=== PATIENT | male | born 1955 | race Caucasian/White ===

== ENCOUNTER → 2023-09-30 06:21 | Outpatient (REF) | payer MEDICARE, SELFPAY ==
[2023-09-30 08:59] LABS: % Basophils 0.8 % (0-2); % Eosinophils 3.2 % (0-6); % Immature Granulocytes 0.3 % (0-0.5); % Monocytes 13.4 % (1.7-9.3); % Neutrophils 48.3 % (42.2-75.2); Absolute Basophils 0.1 10^3/uL (0-0.2); Absolute Eosinophils 0.3 10^3/uL (0-0.7); Absolute Lymphocytes 3.3 10^3/uL (1.2-3.4); Absolute Monocytes 1.3 10^3/uL (0.1-0.6); Absolute Neutrophils 4.7 10^3/uL (1.4-6.5); Hematocrit 45.2 % (39.0-52.0); Hemoglobin 14.7 g/dL (13.0-18.0); Mean Corp Hgb Conc. 32.5 g/dL (33.0-37.0); Mean Corpuscular Volume 92.2 fL (80.0-94.0); Mean Platelet Volume 11.1 fL (7.4-10.4); Nucleated Red Blood Cells % 0 % (-); Platelet Count 322 10^3/uL (130-400); Red Cell Dist. Width 13.7 % (11.5-14.5); White Blood Cell Count 9.8 10^3/uL (4.8-10.8)
[2023-09-30 09:08] LABS: ALT (SGPT) 40 U/L (0-50); AST (SGOT) 44 U/L (17-59); Albumin 4.6 g/dl (3.5-5.0); Alkaline Phosphatase 67 U/L (38-126); Blood Urea Nitrogen 17 mg/dl (9-20); Calcium 10.1 mg/dl (8.4-10.2); Carbon Dioxide 26 mmol/L (22-30); Chloride 106 mmol/L (98-107); Glucose 115 mg/dl (70-99); HDL Cholesterol 66 mg/dl; LDL Cholesterol, Calculated 125 mg/dl; Potassium 4.8 mmol/L (3.5-5.1); Sodium 139 mmol/L (135-145); Total Bilirubin 0.9 mg/dl (0.2-1.3); Total Cholesterol 208 mg/dl (50-199); Total Protein 7.5 g/dl (6.3-8.2); Triglyceride 85 mg/dl (10-149); Very Low Density Lipoprotein 17 mg/dl (0-30); eGFR > 60.00
[2023-09-30 10:16] LABS: PSA, Total - Screen 0.88 ng/ml (0.0-4.0); TSH Reflex To Free T4 3.25 uIU/ml (0.47-4.68)
== END ==
LOC: HWLAB 06:21
PROVIDERS: ATTENDING PHYSICIAN Internal Medicine
DX: I10 Essential (primary) hypertension (principal); E66.9 Obesity, unspecified; R05.3 Chronic cough; Z12.5 Encounter for screening for malignant neoplasm of prostate; E78.00 Pure hypercholesterolemia, unspecified
CPT/HCPCS: 36415; 80053; 80061; 84443; 85025; G0103

== ENCOUNTER 2024-01-31 15:40 | Emergency (ER) | payer MEDICARE, SELFPAY ==
[2024-01-31 15:43] VITALS: BP 151/87
[2024-01-31] MEDS: ADACEL 0.5 ML IM (17:17)
--- NOTE | 2024-01-31 17:26 | ED.GENMED ---
History of Present Illness
General
Chief Complaint: Skin Surface Trauma
Source: patient and spouse
Exam Limitations: none
Time Seen by Provider: 01/31/24 16:59
Nursing documentation reviewed up to this point in time: agreed with
History of Present Illness
History of Present Illness:
The patient is a 68-year-old male presenting to the emergency department today with concerns of a laceration to his left wrist that happened from a broken place of glass at home. Denies significant bleeding from the area denies any anticoagulant
use. He is unsure when his last tetanus shot was. Denies any numbness weakness or additional concerns.
Past History
Past History
ED Past Medical History: None
ED Past Surgical History: None
Review of Systems
Review of Systems
Allergies reviewed?: Yes
All Other Systems: ROS reviewed and negative except as documented in HPI and ROS
Phy Exam
Physical Exam
Physical Exam:
GENERAL: Alert , in no apparent distress
EYE: pupils equal and reactive
NECK: Supple, no significant adenopathy.
ENT: o/p clr, mmm.
CARDIAC: Regular rate and rhythm .
LUNGS: Clear breath sounds bilaterally, no acute respiratory distress, no wheezes/rales/rhonchi
ABDOMEN: Soft, without focal tenderness, no r/g, no cvat
NEUROLOGICAL: Alert and oriented, no focal neuro deficits
SKIN: 2.5 cm laceration to the anterior aspect of the left wrist. No foreign body seen explored to its base warm and dry, skin intact.
MUSCULOSKELETAL: No edema, well perfused.
PSYCH: Normal and appropriate interaction.
Course
Orders/Labs/Results
Orders:
Orders
01/31/24 17:05
Tetanus/Diphth/Acelpertussis [Adacel] 0.5 ml IM .ONCE ONE
Vital Signs
Initial and Last Documented VS:
Initial Vital Signs
Temp Pulse Resp BP Pulse Ox
99 F 79 16 151/87 95
01/31/24 15:43 01/31/24 15:43 01/31/24 15:43 01/31/24 15:43 01/31/24 15:43
Last Documented Vital Signs
Temp Pulse Resp BP Pulse Ox
99 F 79 16 151/87 95
01/31/24 15:43 01/31/24 15:43 01/31/24 15:43 01/31/24 15:43 01/31/24 15:43
Procedures
Laceration Closure
Left Anterior Wrist:
Status of Wound: clean
Size of Wound in cm: 2.5
Description of Wound Edges: sharp
Preparation: cleaned with saline
Anesthesia: 1% Lidocaine with epi
Revision/Debridement: routine- no revision and irrigate-direct pressure
Wound exploration: explored to base- no FB and no tendon involvement
Type of Closure: single layer closure
Skin Closure Material: 4-0 nylon
Number of sutures: 6
MDM/Problems Addressed
MDM/Problems Addressed:
68-year-old male presenting to the emergency department today with concerns of a laceration to his left wrist that occurred from a piece of broken glass at home. No foreign body seen explored here. No evidence of bony injury. No neurovascular
injury. Neuro vastly intact on examination. Area was cleaned thoroughly and closed with 6 nylon sutures. Patient tolerated well he was given updated tetanus shot otherwise able for discharge.
*Critical Care Note
Total Time (30-74mins, 75-104mins- exclusive of procedures): Not Applicable
ED Attending Note
-
Portions of this chart may have been created with voice recognition software.� Occasional wrong word or��sound alike� substitutions may have occurred due to the inherent limitations of voice recognition software.
Discharge Plan
Departure
Patient Disposition: Home (Routine Discharge)
Date of Disposition: 01/31/24
Time of Disposition: 17:53
Patient with high blood pressure during this ER visit?: No
Condition: Good
Covid-19: Not Applicable
Discharge Problem:
Laceration of left wrist
Instructions: Laceration Repair With Stitches (DC)
Referrals:
Tami Vega DO [Family Provider] -
Activity Restrictions/Additional Instructions:
You came to the emergency department today with concerns of a laceration to your left wrist. This was closed with 6 stitches. Please keep the area clean covered and follow-up in 2 weeks for suture removal. Return to the emergency department any
worsening, new or concerning symptoms.
Interventions
Interventions:
ED-Skin Assessment Last Done: 01/31/24 17:01
Discharge Date and Time
Print Language: KYRGYZ
== END 2024-01-31 18:05 | disposition home or self-care (01) ==
LOC: EMR 15:40
PROVIDERS: EMERGENCY PHYSICIAN Emergency Medicine; FAMILY PHYSICIAN Internal Medicine
DX: S61.512A Laceration without foreign body of left wrist, initial encounter (principal); W25.XXXA Contact with sharp glass, initial encounter; Z23 Encounter for immunization
CPT/HCPCS: 99282; 12001; 90471; 90715

== ENCOUNTER → 2024-04-05 06:59 | Outpatient (REF) | payer MEDICARE, SELFPAY ==
[2024-04-05 10:27] LABS: Glycohemoglobin (HgbA1c) 5.8 % (4.0-5.6)
[2024-04-05 10:39] LABS: ALT (SGPT) 37 U/L (0-50); AST (SGOT) 39 U/L (17-59); Albumin 4.6 g/dl (3.5-5.0); Alkaline Phosphatase 60 U/L (38-126); Blood Urea Nitrogen 15 mg/dl (9-20); Calcium 9.9 mg/dl (8.4-10.2); Carbon Dioxide 30 mmol/L (22-30); Chloride 103 mmol/L (98-107); Glucose 118 mg/dl (70-99); Potassium 4.6 mmol/L (3.5-5.1); Sodium 142 mmol/L (135-145); Total Bilirubin 0.7 mg/dl (0.2-1.3); Total Protein 7.6 g/dl (6.3-8.2); eGFR > 60.00
== END ==
LOC: HWLAB 06:59
PROVIDERS: ATTENDING PHYSICIAN Internal Medicine
DX: R73.01 Impaired fasting glucose (principal)
CPT/HCPCS: 36415; 80053; 83036

== ENCOUNTER → 2024-09-17 08:40 | Outpatient (REF) | payer MEDICARE, SELFPAY ==
[2024-09-17 11:54] LABS: Blood Urea Nitrogen 14 mg/dl (9-20); Calcium 9.8 mg/dl (8.4-10.2); Carbon Dioxide 26 mmol/L (22-30); Chloride 105 mmol/L (98-107); Glucose 123 mg/dl (70-99); Potassium 4.4 mmol/L (3.5-5.1); Sodium 140 mmol/L (135-145); eGFR > 60.00
== END ==
LOC: HWLAB 08:40
PROVIDERS: ATTENDING PHYSICIAN Internal Medicine
DX: R73.01 Impaired fasting glucose (principal); R05.3 Chronic cough
CPT/HCPCS: 36415; 80048

== ENCOUNTER → 2024-09-19 13:27 | Outpatient (REF) | payer MEDICARE, SELFPAY | LOC: RAD 13:27 | PROVIDERS: ATTENDING PHYSICIAN Internal Medicine | DX: R05.3 Chronic cough (principal) | CPT/HCPCS: 71260; Q9967 ==

== ENCOUNTER 2024-10-25 20:08 | Observation (INO) | payer MEDICARE, SELFPAY ==
[2024-10-25] VITALS (7 sets, daily range): BP systolic 118–150; BP diastolic 71–83; BMI 31.4; BMI 30.5
[2024-10-25 17:14] LABS: % Basophils 0.8 % (0-2); % Immature Granulocytes 0.2 % (0-0.5); % Lymphocytes 34.8 % (20.5-51.1); % Monocytes 11.2 % (1.7-9.3); Absolute Basophils 0.1 10^3/uL (0-0.2); Absolute Eosinophils 0.2 10^3/uL (0-0.7); Absolute Lymphocytes 3.6 10^3/uL (1.2-3.4); Absolute Monocytes 1.2 10^3/uL (0.1-0.6); Absolute Neutrophils 5.3 10^3/uL (1.4-6.5); Hematocrit 41.8 % (39.0-52.0); Hemoglobin 14.8 g/dL (13.0-18.0); Mean Corp Hgb Conc. 35.4 g/dL (33.0-37.0); Mean Corpuscular Hgb 31.2 pg (27.0-31.0); Mean Platelet Volume 9.8 fL (7.4-10.4); Nucleated Red Blood Cells % 0 % (-); Platelet Count 359 10^3/uL (130-400); Red Blood Cell Count 4.75 10^6/uL (4.70-6.10); White Blood Cell Count 10.4 10^3/uL (4.8-10.8)
[2024-10-25 17:36] LABS: ALT (SGPT) 35 U/L (0-50); AST (SGOT) 36 U/L (17-59); Albumin 4.8 g/dl (3.5-5.0); Alkaline Phosphatase 62 U/L (38-126); Blood Urea Nitrogen 19 mg/dl (9-20); Calcium 9.9 mg/dl (8.4-10.2); Carbon Dioxide 23 mmol/L (22-30); Chloride 107 mmol/L (98-107); Glucose 141 mg/dl (70-99); Potassium 3.8 mmol/L (3.5-5.1); Sodium 140 mmol/L (135-145); Total Bilirubin 1.1 mg/dl (0.2-1.3); eGFR > 60.00
[2024-10-25 17:39] LABS: Troponin I < 0.012 ng/ml
--- NOTE | 2024-10-25 18:20 | ED.CVA ---
History of Present Illness
General
Chief Complaint: CVA/TIA Symptoms
Source: patient and spouse
Exam Limitations: none
Time Seen by Provider: 10/25/24 17:56
Nursing documentation reviewed up to this point in time: agreed with
Onset of Stroke Symptoms
Onset of symptoms known: Yes
Date of onset of symptoms: 10/24/24
Time of onset of symptoms: 08:00
History of Present Illness
History of Present Illness:
69-year-old male hypertensive nondrinker non-smoker 8 AM yesterday developed right-sided facial weakness and speech abnormality symptoms have been persistent through the day no headache no nausea vomiting arm or leg weakness, no rash no insect bite
Past History
Past History
ED Past Medical History: HTN
ED Past Surgical History: None
Social History
Tobacco: Non-smoker
Alcohol: None
Drug: None
Personal:
Living: with family
Employment: Retired
Review of Systems
Review of Systems
Other source history: family
All Other Systems: Not applicable
EENT: Reports no symptoms
Respiratory: Reports no symptoms
Cardiac: Reports no symptoms
ABD/GI: Reports no symptoms
: Reports no symptoms
Musculoskeletal: Reports no symptoms
Neurological: Reports weakness and other (Speech abdomen); Denies headache
Endocrine: Reports no symptoms
Phy Exam
Physical Exam
Physical Exam:
Physical Exam
General: no apparent distress, not acutely ill
Neck: No tongue bite
Heart: s1/s2 regular rate and rhythm, no murmur. equal radial pulses.
Lungs: no acute respiratory distress. clear bilaterally
Abdomen nontender
Neuro: alert and oriented. Right-sided facial weakness flattening the nasolabial fold able to close his eyes no weakness of the forehead bilaterally speech is slightly slurred
Skin: no rash
Psychiatric: well kept. interactive and cooperative
Extremities: no edema.
NIH Stroke Score
Level of Consciousness: 0 - Alert
LOC questions: 0-Answers both correctly
LOC Commands: 0-Performs both correctly
Best Gaze: 0-Normal
Visual Stephens: 0=Normal, no visual loss
Facial palsy: 2=Partial paralysis
Motor - Right Arm: 0=No drift 10 seconds
Motor - Left Arm: 0=No drift 10 seconds
Motor - Right Le-No drift 5 seconds
Motor - Left Le-No drift 5 seconds
Limb Ataxia: 0-Absent
Sensation: 0-Normal
Best Language: 1-Mild aphasia
Dysarthria: 0-Normal
Extinction and Inattention: 0-No abnormality
Total Score:: 3
Alteplase Contraindication
Reasons for NON-Treatment with Thrombolytics: Time
Course
Orders/Labs/Results
Orders:
Orders
10/25/24 17:00
Electrocardiogram (*1) Urgent
Reason for Study: Other
Other Reason for Exam: Possible Stroke
Bedside Glucose- Treatment ONCE
10/25/24 17:02
CT Head W/o Iv Contrast Urgent
Comment:
Reason For Exam: stroke symptoms
EKG- Treatment ONCE
10/25/24 17:06
Complete Blood Count/With Diff Urgent
Comprehensive Metabolic Panel Urgent
Troponin I Urgent
10/25/24 17:20
PTT Urgent
Prothrombin Time Urgent
10/25/24 18:19
Add On- LAB Urgent
Tests Added?: Lyme progressive
Aspirin 325 mg PO NOW STA
Abnormal Lab Results
10/25/24
17:06
MCH 31.2 H pg
(27.0-31.0)
Absolute Lymphs (auto) 3.6 H 10^3/uL
(1.2-3.4)
Absolute Monos (auto) 1.2 H 10^3/uL
(0.1-0.6)
Monocytes % 11.2 H %
(1.7-9.3)
Glucose 141 H mg/dl
(70-99)
10/25/24 17:06
10/25/24 17:06
Vital Signs
Initial and Last Documented VS:
Initial Vital Signs
Temp Pulse Resp BP Pulse Ox
98.8 F 63 18 150/83 95
10/25/24 16:57 10/25/24 16:57 10/25/24 16:57 10/25/24 16:57 10/25/24 16:57
Last Documented Vital Signs
Temp Pulse Resp BP Pulse Ox
98.8 F 71 16 144/73 96
10/25/24 16:57 10/25/24 18:09 10/25/24 18:09 10/25/24 18:09 10/25/24 18:09
MDM/Problems Addressed
Differential Diagnosis Includes:
CVA hypertensive urgency mass Pearson's palsy
MDM/Problems Addressed:
Speech abnormality facial weakness
Chronic conditions affecting care: HTN
Acute Exacerbation and/or Progression of Chronic Illness: HTN
*EKG
Interpreted by ED Provider?: Yes
Interpretation: normal
Comparison EKG: no comparison EKG present
Heart Rate: 78
Rate: normal
Rhythm: sinus
Ischemia: no ischemia
*Repacker Interpretation
Rate: normal
Interpretation: normal
Heart Rate: 78
Rhythm: sinus
*Critical Care Note
Total Time (30-74mins, 75-104mins- exclusive of procedures): Not Applicable
Update Note
Update Note:
Update appears to have a 7 palsy, sparing his forehead with some speech abnormality, suspect this is a central versus peripheral process, will be admitted
ED Attending Note
-
Portions of this chart may have been created with voice recognition software.� Occasional wrong word or��sound alike� substitutions may have occurred due to the inherent limitations of voice recognition software.
Discharge Plan
Departure
Patient Disposition: Admit
Date of Disposition: 10/25/24
Time of Disposition: 18:25
Admit to: Telemetry
Presentation/result/management discussed w/ accepting MD/DO: Hospitalist
Patient with high blood pressure during this ER visit?: Yes
Condition: Good
Discharge Problem:
Stroke
Instructions: Stroke (DC)
Interventions
Interventions:
*Risk Screen - Suicide Last Done: 10/25/24 16:57
*General Assessment Last Done: 10/25/24 16:57
*Neglect/Abuse Screening Last Done: 10/25/24 16:57
*ED COVID-19 Vaccine History Last Done: 10/25/24 16:57
Discharge Date and Time
Print Language: QATARI
[2024-10-25 18:24] LABS: Glucose - Point of Care 110 mg/dl (70-99)
[2024-10-25] MEDS: ASPIRIN 325 MG PO (18:30)
[2024-10-25 18:40] LABS: INR 1.08; PT 14.5 Sec (11.4-14.6)
[2024-10-25 18:41] LABS: APTT 33.7 Sec (23.4-35.0)
--- NOTE | 2024-10-25 19:05 | HPS.HSE ---
Family Physician
-
Family Physician: Tmai Vega DO
Chief Complaint
-
aphasia
History of Present Illness
This is a 69-year-old with past medical history significant for hypertension and hyperlipidemia who presents to the emergency department approximately 30 hours after onset of aphasia and right lower mild to the weakness/numbness.
Patient reported being a just of health up until being noticed yesterday by spouse. He reportedly awoke in usual state of health. Spouse noticed that his speech was slowed/weak garbled. He also noticed that he was drooling out of the right bottom
side of his mouth. He reports subacute to chronic cough that is unchanged. Denies any dysphagia. Denies any numbness tingling or weakness in his extremities. Patient denies any nausea or vomiting or diarrhea. Denies any headache. Denies any
visual changes.
Patient was recently stopped taking Lipitor about 1 week ago for generalized aches. He denies any prior history of TIA/stroke symptoms. He denies a prior cardiovascular history. Denies any family history of atherosclerosis or coronary artery
disease.
In the emergency department the patient was febrile blood pressure was 144/73 with a pulse of 71 and satting 98% on room air. ECG shows a normal sinus rhythm at rate of 67 with incomplete right bundle. CT of the head shows no acute interval
changes.
CBC was completely unremarkable.
Electrolytes BUN/creatinine were all within the normal range. Troponin was negative.
Medical History
Past Medical History
Past Medical History: Reports HTN and Hypercholesterolemia
Past Surgical History: Reports Orthopedic (Back surgery) and Other (Hernia repair)
Social History
Tobacco: Non-smoker
Alcohol: Occasional
Drug: None
Personal:
Living: With Family
Employment: Retired
Family History
Family History: Not pertinent
Allergies / Home Medications
Allergies reflects when Allergies were last updated in [facility].
Home Medications with original date entered in [facility]
Allergy/Medication List:
Allergies
Allergy/AdvReac Type Severity Reaction Status Date / Time
No Known Allergies Allergy Verified 10/25/24 16:56
Amlodipine 5 mg tablet, 5 mg p.o. daily
Hydrochlorothiazide 12.5 mg tablet, 10.5 mg p.o. daily
Review of Systems
-
History Source: Patient
Constitutional: Reports No Symptoms
EENT: Reports No Symptoms
Respiratory: Reports No Symptoms
Cardiac: Reports No Symptoms
Abdomen/GI: Reports No Symptoms
: Reports No Symptoms
Musculoskeletal: Reports No Symptoms
Skin: Reports No Symptoms
Neurological: Reports Other (Slurred speech)
Endocrine: Reports No Symptoms
Hematologic/Lymphatic: Reports No Symptoms
Psych: Reports No Symptoms
Physical Exam
Vital Signs
Vital Signs
Temp Pulse Resp BP Pulse Ox
98.8 F 71 16 144/73 97
10/25/24 16:57 10/25/24 18:09 10/25/24 18:09 10/25/24 18:09 10/25/24 18:24
Physical Exam
General: Well Developed, Well Nourished and No Apparent Distress
HEENT: NormoCephalic, Moist mucous membranes and Atraumatic
Respiratory: Clear
Cardiac: S1/S2 and Regular Rhythm; No Murmur or Rub
GI: Soft, Non Tender, Non Distended and Normal Bowel Sounds; No Organomegaly
Rectal: Deferred by Provider
Musculoskeletal: No Clubbing, No Cyanosis and No Edema
Skin: No Rash
Neuro: Nonfocal/grossly intact
Hematologic/Lymphatic: No Lymphadenopathy
Psych: Calm
Laboratory Results
-
10/25/24 17:06
10/25/24 17:06
Laboratory Results
PT 14.5 Sec (11.4-14.6) 10/25/24 18:22
INR 1.08 10/25/24 18:22
APTT 33.7 Sec (23.4-35.0) 10/25/24 18:22
Total Bilirubin 1.1 mg/dl (0.2-1.3) 10/25/24 17:06
AST 36 U/L (17-59) 10/25/24 17:06
ALT 35 U/L (0-50) 10/25/24 17:06
Alkaline Phosphatase 62 U/L (38-126) 10/25/24 17:06
Troponin I < 0.012 ng/ml 10/25/24 17:06
Data Reviewed
-
CT Scan: Report Reviewed by me
Medical Tests (Nuc Med, Echo, EKG etc): Image Personally Visualized and interpreted
Lab Data: Labs Reviewed by me
Old Records: Reviewed
Impression/Plan
-
IMPRESSION:
69-year-old with past medical history significant for hypertension and hyperlipidemia who presents the emergency department 30 hours after onset of slurred speech and mild paresthesias of the right lower oral cavity. Reports occasional drooling
with food intake. Exam shows slight right-sided facial droop but otherwise unremarkable. NIHSS is currently quite 0. Patient's reports some persistence of the slurred speech but symptoms, vital signs otherwise stable. Labs unremarkable. CT of
the head was negative.
PLAN:
TIA vs CVA - No risk factors for cardioembolic phenomenon. CT head negative. NIHSS =0
-admit to telemetry of the patient
-Speech and swallow eval
-Continue aspirin 81 daily, Plavix 75
-History of possible reaction to Lipitor, check lipid profile, consider Crestor
-Check A1c
-Echo, carotid ultrasounds in a.m.
-MRI brain without contrast
-PT OT
-Neurology consult
DVT prophylaxis�Lovenox subcu
CODE STATUS�DNR
--- NOTE | 2024-10-25 21:30 | PTCARENOTE ---
Pt arrived to room 414-02. Pt ambulated from stretcher to bed. Pt AAOx3, VSS. NIH 3- refer to stroke scale. Pt oriented to room, call ballard placed within reach. Bed alarm in place.
[2024-10-26] VITALS (7 sets, daily range): BP systolic 117–153; BP diastolic 69–86; O2SAT 100
[2024-10-26] MEDS: LOW STRENGTH ASPIRIN 81 MG PO (07:28)
[2024-10-26 08:15] LABS: Hemoglobin 14.1 g/dL (13.0-18.0); Mean Corp Hgb Conc. 34.4 g/dL (33.0-37.0); Mean Corpuscular Hgb 30.7 pg (27.0-31.0); Mean Corpuscular Volume 89.3 fL (80.0-94.0); Mean Platelet Volume 10.7 fL (7.4-10.4); Platelet Count 332 10^3/uL (130-400); Red Blood Cell Count 4.59 10^6/uL (4.70-6.10); Red Cell Dist. Width 12.9 % (11.5-14.5); White Blood Cell Count 8.3 10^3/uL (4.8-10.8)
--- NOTE | 2024-10-26 08:43 | W.PN.HOSP.TC ---
Today's Communication/Plan
-
Discharge if MRI negative
Assessment / Plan
Assessment / Plan
Impression:
69-year-old with past medical history significant for hypertension and hyperlipidemia who presents the emergency department 30 hours after onset of slurred speech and mild paresthesias of the right lower oral cavity. Reports occasional drooling
with food intake. Exam shows slight right-sided facial droop but otherwise unremarkable. NIHSS is currently quite 0. Patient's reports some persistence of the slurred speech but symptoms, vital signs otherwise stable. Labs unremarkable. CT of
the head was negative.
Carotid ultrasound done which shows Calcific plaque within BOTH carotid bulbs and proximal internal carotid arteries. Any stenosis is less than 50% based upon velocity criteria.
Antegrade flow within both vertebral arteries.
MRI brain pending
Assessment/plan:
TIA vs CVA -
No risk factors for cardioembolic phenomenon. CT head negative. NIHSS =0
-admit to telemetry of the patient
-Speech and swallow eval
-Continue aspirin 81 daily, Plavix 75
-History of possible reaction to Lipitor, LDL 105
-A1c 5.7
-Carotid ultrasound done which shows Calcific plaque within BOTH carotid bulbs and proximal internal carotid arteries. Any stenosis is less than 50% based upon velocity criteria.
Antegrade flow within both vertebral arteries.
MRI brain pending
CODE STATUS�DNR
DVT prophylaxis: Lovenox
Diet: cardiac diet
Disposition: Pending MRI
Total time spent on today's encounter was 65 minutes which included time spent in counseling the patient/family regarding diagnosis and treatment plan as listed above, goals of care, and symptom management. Case was discussed with nursing staff,
specialists, and care coordinators/case management. All labs and imaging personally reviewed by me. Remainder the time spent in detailed review of previous records, lab data, imaging, and other medical provider documentation.
Anticipated Discharge: Within 24 hours
Subjective/Interval History
-
Date of Service: October 26, 2024
Patient seen and examined at bedside, denies any chest pain or shortness of breath, no abdominal pain, no nausea, no vomiting, no diarrhea or constipation. still with right sided face numbness.
MRI brain pending
Objective Data
-
Labs:
Laboratory Results
10/26/24
06:22
WBC 8.3
Hgb 14.1
Hct 41.0
Plt Count 332
Sodium Pending
Potassium Pending
Chloride Pending
Carbon Dioxide Pending
BUN Pending
Creatinine Pending
Glucose Pending
Calcium Pending
Vital Signs:
Vital Signs
Temp Pulse Resp BP Pulse Ox
98.0 F 54 18 131/86 92
10/26/24 08:00 10/26/24 08:00 10/26/24 08:00 10/26/24 08:00 10/26/24 08:00
Physical Exam
-
General: Well Developed, Well Nourished, No Apparent Distress and Comfortable
HEENT: Normocephalic, Atraumatic, Moist Mucous Membranes, No Ptosis, PERRLA and Nose Appears Normal
Respiratory: Clear to Auscultation and Non Labored Respirations
Cardiac: Regular Rhythm and S1/S2
Breast: Deferred by me
GI: Soft, Nontender, Nondistended and Normal Bowel Sounds
Genito-urinary: No Costovertebral Tender
Musculoskeletal: No Clubbing, No Cyanosis and No Edema
Skin: Warm
Neuro: Awake, Alert, Oriented, AO x 3 and No Motor Deficits
Psych: Calm
Data Reviewed
-
Diagnostic Radiology: Image personally visualized and interpreted and Report Reviewed by me
CT Scan: Image personally visualized and interpreted and Report Reviewed by me
Ultrasound: Image personally visualized and interpreted and Report Reviewed by me
MRI: Image personally visualized and interpreted and Report Reviewed by me
Medical Tests (Nuc Med, Echo etc): Image personally visualized and interpreted and Report Reviewed by me
Labs: Labs Reviewed by me
Old Records: Reviewed
[2024-10-26 09:06] LABS: Blood Urea Nitrogen 17 mg/dl (9-20); Calcium 9.2 mg/dl (8.4-10.2); Carbon Dioxide 23 mmol/L (22-30); Chloride 109 mmol/L (98-107); Estimated Creatinine Clearance 123 ml/min; Glucose 98 mg/dl (70-99); HDL Cholesterol 61 mg/dl; LDL Cholesterol, Calculated 105 mg/dl; Magnesium 2.2 mg/dl (1.6-2.3); Sodium 140 mmol/L (135-145); Total Cholesterol 175 mg/dl (50-199); Triglyceride 49 mg/dl (10-149); Very Low Density Lipoprotein 9 mg/dl (0-30); eGFR > 60.00
[2024-10-26 09:12] LABS: Erythrocyte Sed Rate 10 mm/hour (0-20)
[2024-10-26 09:46] LABS: Glycohemoglobin (HgbA1c) 5.7 % (4.0-5.6)
--- NOTE | 2024-10-26 10:00 | PTOTSP ---
MEDICATION AIDE Evaluations
Patient is at risk for dysphagia given concern for acute stroke with right sided numbness (intraoral) and decreased lingual strength. However, no overt signs of dysphagia observed with use of compensations (placing utensil/bolus on left).
Patient with minimal imprecision of articulation but 100% intelligible in known and unknown contexts. No aphasia observed and Quick Aphasia Battery Overall Score =9.79.
Recommend:
1. Regular, Thin
2. Medications as best tolerated
3. Strategies: upright to 90 degrees, place utensil on left, check for oral clearance on right with use of clean digital sweep
4. Brief dysphagia f/u and consideration of cognitive testing pending results of MRI. No overt signs concerning for cognitive deficits at present.
--- NOTE | 2024-10-26 10:33 | CM ---
Patient seen at bedside
IA completed
CM consult complete
await MRI, vascular US completed
Patient lives with in 2 story home, no steps to enter, flight to bedroom/bath, powder room on 1st floor
PLOF: Independent
Denies DME
Denies VN/has had outpatient rehab in past
Denies insecurities
PT eval no skilled needs
PCP: Tami Vega
Pharmacy: [facility]
PLAN: anticipate home when stable, CM to follow for needs.
--- NOTE | 2024-10-26 14:12 | CARDSERVLU ---
Echocardiogram with [facility] completed after protocol screening completed. Allergies verified.
Patent IV site: Rt AC
IV site flushed with 0.9% NaCl pre and post administration.
Diluted bolus method utilized to enhance visualization of ventricular sy.
Total volume given: _1.5__ mL
Patient tolerated all procedures well without complications.
[2024-10-26] MEDS: TYLENOL 650 MG PO (14:45)
[2024-10-26] MEDS: CRESTOR 10 MG PO (17:08)
[2024-10-26] MEDS: LOVENOX 40 MG SC (17:08)
--- NOTE | 2024-10-26 18:28 | CON.NEURO ---
Neuro Assessment/Plan
Assessment
carotid u/s showing calcified plaque both carotid bulbs, prox ICA with <50% stenosis
By exam this would be an acute stroke based on residual symptoms and deficits,
and with aphasia would suggest cortical involvement, and without any signifcant vascular disease, concern would be embolic stroke of unknown source
would pursue embolic workup, likely as outpatient given weekend
agree ASA 81, I added 21 days of plavix and increased Crestor to 20
right V3 neuralgia, I started Trileptal 300 BID and will perform trigeminal nerve block
Consultation
Order
Date of Consultation: 10/26/24
Requesting Provider: Radha Ocampo
Reason for Consult: stroke
Subjective/Objective
Subjective Data
Date of Service: October 26, 2024
from h&p
This is a 69-year-old with past medical history significant for hypertension and hyperlipidemia who presents to the emergency department approximately 30 hours after onset of aphasia and right lower mild to the weakness/numbness.
Patient reported being a just of health up until being noticed yesterday by spouse. He reportedly awoke in usual state of health. Spouse noticed that his speech was slowed/weak garbled. He also noticed that he was drooling out of the right bottom
side of his mouth. He reports subacute to chronic cough that is unchanged. Denies any dysphagia. Denies any numbness tingling or weakness in his extremities. Patient denies any nausea or vomiting or diarrhea. Denies any headache. Denies any
visual changes.
Patient was recently stopped taking Lipitor about 1 week ago for generalized aches. He denies any prior history of TIA/stroke symptoms. He denies a prior cardiovascular history. Denies any family history of atherosclerosis or coronary artery
disease.
today he reports still having a little bit of dysarthria
Objective Data
Vital Signs
Temp Pulse Resp BP Pulse Ox
37.1 C 61 18 153/78 97
10/26/24 15:40 10/26/24 15:40 10/26/24 15:40 10/26/24 15:40 10/26/24 15:40
Lab Results
10/26/24 06:22
10/26/24 06:22
PT 14.5 Sec (11.4-14.6) 10/25/24 18:22
INR 1.08 10/25/24 18:22
APTT 33.7 Sec (23.4-35.0) 10/25/24 18:22
Sodium 140 mmol/L (135-145) 10/26/24 06:22
Potassium 4.0 mmol/L (3.5-5.1) 10/26/24 06:22
BUN 17 mg/dl (9-20) 10/26/24 06:22
Glucose 98 mg/dl (70-99) 10/26/24 06:22
Calcium 9.2 mg/dl (8.4-10.2) 10/26/24 06:22
LDL Cholesterol, Calc 105 mg/dl 10/26/24 06:22
Patient Allergies
No Known Allergies Allergy (Verified 10/25/24 16:56)
Physical Exam
-
AAOx3, speech clear, language intact to naming repetition comprehension
VFF, EOMI, R NL flattening
full strength b/l UE/LE
sensation mild right sided vibratory loss, and bilateral LE vib loss
Medications
-
Active Medications
Generic Name Dose Route Start Last Admin
Trade Name Freq PRN Reason Stop Dose Admin
Acetaminophen 650 mg 10/25/24 21:28
Acetaminophen 650 Mg Rectal Suppository RECTAL 11/22/24 21:27
Q4HPRN PRN
JOSHI, mild pain, or temp >100.4F
Acetaminophen 650 mg 10/25/24 21:28 10/26/24 14:45
Acetaminophen 325 Mg Tablet PO 11/22/24 21:27 650 mg
Q4HPRN PRN Administration
JOSHI, mild pain, or temp >100.4F
Aspirin 81 mg 10/26/24 08:00 10/26/24 07:28
Aspirin 81 Mg Chewable Tablet PO 11/23/24 07:59 81 mg
DAILY CLARE Administration
Clopidogrel Bisulfate 75 mg 10/26/24 18:05
Clopidogrel 75 Mg Tablet PO 11/15/24 08:01
DAILY CLARE
Enoxaparin Sodium 40 mg 10/26/24 18:00 10/26/24 17:08
Enoxaparin Sodium 40 Mg/0.4 Ml Syringe SC 11/23/24 17:59 40 mg
QPM CLARE Administration
Magnesium Hydroxide 30 ml 10/25/24 21:28
Milk Of Magnesia 30 Ml Cup PO 11/22/24 21:27
HSPRN PRN
constipation
Oxcarbazepine 300 mg 10/26/24 20:00
Oxcarbazepine 300 Mg Tablet PO 11/23/24 19:59
BID CLARE
Rosuvastatin Calcium 20 mg 10/27/24 18:00
Rosuvastatin (Crestor) 20 Mg Tablet PO 11/24/24 17:59
QPM CLARE
Sodium Chloride 0 flush 10/25/24 22:00
Sodium Chloride 0.9% (Flush) Syringe IV 11/22/24 21:59
PER PROTOCOL CLARE
[2024-10-26] MEDS: PLAVIX 75 MG PO (21:31)
[2024-10-26] MEDS: TRILEPTAL 300 MG PO (21:31)
[2024-10-27 03:06] VITALS: BP 131/75
[2024-10-27] MEDS: LOW STRENGTH ASPIRIN 81 MG PO (07:17)
[2024-10-27] MEDS: TRILEPTAL 300 MG PO (07:17)
[2024-10-27] MEDS: PLAVIX 75 MG PO (07:17)
[2024-10-27 07:50] VITALS: BP 150/83
[2024-10-27 12:00] VITALS: BP 165/89
[2024-10-27] MEDS: KENALOG-40 40 MG IM (12:24)
[2024-10-27] MEDS: SENSORCAINE 0.5% SINGLE DOSE 30 ML INJ (12:25)
--- NOTE | 2024-10-27 12:44 | W.PN.HOSP.TC ---
Today's Communication/Plan
-
Discharge home today.
Assessment / Plan
Assessment / Plan
Impression:
69-year-old with past medical history significant for hypertension and hyperlipidemia who presents the emergency department 30 hours after onset of slurred speech and mild paresthesias of the right lower oral cavity. Reports occasional drooling
with food intake. Exam shows slight right-sided facial droop but otherwise unremarkable. NIHSS is currently quite 0. Patient's reports some persistence of the slurred speech but symptoms, vital signs otherwise stable. Labs unremarkable. CT of
the head was negative.
Carotid ultrasound done which shows Calcific plaque within BOTH carotid bulbs and proximal internal carotid arteries. Any stenosis is less than 50% based upon velocity criteria.
Antegrade flow within both vertebral arteries.
MRI brain negative.
Neurology recommending discharge home on aspirin/Plavix for 21 days and
Assessment/plan:
TIA vs CVA -
No risk factors for cardioembolic phenomenon. CT head negative. NIHSS =0
-admit to telemetry of the patient
-Speech and swallow eval
-Continue aspirin 81 daily, Plavix 75
-History of possible reaction to Lipitor, LDL 105
-A1c 5.7
-Carotid ultrasound done which shows Calcific plaque within BOTH carotid bulbs and proximal internal carotid arteries. Any stenosis is less than 50% based upon velocity criteria.
Antegrade flow within both vertebral arteries.
MRI brain negative.
CODE STATUS�DNR
DVT prophylaxis: Lovenox
Diet: cardiac diet
Disposition: Discharge home today.
Total time spent on today's encounter was 65 minutes which included time spent in counseling the patient/family regarding diagnosis and treatment plan as listed above, goals of care, and symptom management. Case was discussed with nursing staff,
specialists, and care coordinators/case management. All labs and imaging personally reviewed by me. Remainder the time spent in detailed review of previous records, lab data, imaging, and other medical provider documentation.
Anticipated Discharge: Today
Subjective/Interval History
-
Date of Service: October 27, 2024
Patient seen and examined at bedside, at bedside , denies any chest pain or shortness of breath, no abdominal pain, no nausea, no vomiting, no diarrhea or constipation.
Objective Data
-
Vital Signs:
Vital Signs
Temp Pulse Resp BP Pulse Ox
98.5 F 58 18 165/89 96
10/27/24 12:10/27/24 12:10/27/24 12:10/27/24 12:10/27/24 12:00
Physical Exam
-
General: Well Developed, Well Nourished, No Apparent Distress and Comfortable
HEENT: Normocephalic, Atraumatic, Moist Mucous Membranes, No Ptosis, PERRLA and Nose Appears Normal
Respiratory: Clear to Auscultation and Non Labored Respirations
Cardiac: Regular Rhythm and S1/S2
Breast: Deferred by me
GI: Soft, Nontender, Nondistended and Normal Bowel Sounds
Genito-urinary: No Costovertebral Tender
Musculoskeletal: No Clubbing, No Cyanosis and No Edema
Skin: Warm
Neuro: Awake, Alert, Oriented, AO x 3 and No Motor Deficits
Psych: Calm
Data Reviewed
-
Diagnostic Radiology: Image personally visualized and interpreted and Report Reviewed by me
CT Scan: Image personally visualized and interpreted and Report Reviewed by me
Ultrasound: Image personally visualized and interpreted and Report Reviewed by me
MRI: Image personally visualized and interpreted and Report Reviewed by me
Medical Tests (Nuc Med, Echo etc): Image personally visualized and interpreted and Report Reviewed by me
Labs: Labs Reviewed by me
Old Records: Reviewed
--- NOTE | 2024-10-27 12:50 | W.DCSUMMARY ---
Discharge Summary
Discharge Data
Date of Admission: 10/25/24
Date of Discharge: 10/27/24
-
Pending Results: No
Hospital Course
Hospital course
69-year-old with past medical history significant for hypertension and hyperlipidemia who presents the emergency department 30 hours after onset of slurred speech and mild paresthesias of the right lower oral cavity. Reports occasional drooling
with food intake. Exam shows slight right-sided facial droop but otherwise unremarkable. NIHSS is currently quite 0. Patient's reports some persistence of the slurred speech but symptoms, vital signs otherwise stable. Labs unremarkable. CT of
the head was negative.
Carotid ultrasound done which shows Calcific plaque within BOTH carotid bulbs and proximal internal carotid arteries. Any stenosis is less than 50% based upon velocity criteria.
Antegrade flow within both vertebral arteries.
MRI brain negative.
Neurology recommending discharge home on aspirin/Plavix for 21 days and Trileptal.
During hospitalization patient was treated from the following
TIA vs CVA -
No risk factors for cardioembolic phenomenon. CT head negative. NIHSS =0
-admit to telemetry of the patient
-Speech and swallow eval
-Continue aspirin 81 daily, Plavix 75
-History of possible reaction to Lipitor, LDL 105
-A1c 5.7
-Carotid ultrasound done which shows Calcific plaque within BOTH carotid bulbs and proximal internal carotid arteries. Any stenosis is less than 50% based upon velocity criteria.
Antegrade flow within both vertebral arteries.
MRI brain negative.
CODE STATUS�DNR
DVT prophylaxis: Lovenox
Diet: cardiac diet
Disposition: Discharge home today.
Total time spent on today's encounter was 40 minutes which included time spent in counseling the patient/family regarding diagnosis and treatment plan as listed above, goals of care, and symptom management. Case was discussed with nursing staff,
specialists, and care coordinators/case management. All labs and imaging personally reviewed by me. Remainder the time spent in detailed review of previous records, lab data, imaging, and other medical provider documentation.
Anticipated Discharge: Today
Discharge Plan
-
Patient Disposition: Home (Routine Discharge)
Discharge Diagnosis/Procedures: TIA
Diet: Low Cholesterol
Activity: No restrictions
Referrals:
Forest Carlisle MD [Active, Neurology] - in three to four weeks
Tami Vega DO [Family Provider, Family Practice]
Prescriptions:
New
aspirin 81 mg Tablet,Chewable
81 mg PO DAILY Qty: 30 0RF
oxcarbazepine 300 mg Tablet
300 mg PO BID 30 Days Qty: 60 0RF
clopidogrel 75 mg Tablet
75 mg PO DAILY 21 Days Qty: 21 0RF
rosuvastatin 20 mg Tablet
20 mg PO QPM 30 Days Qty: 30 0RF
Discharge Orders:
Discharge Patient (As Directed); Ordered 10/27/24
Ordered By: Ekaterina Munoz
Discharge Date and Time
Print Language: MALAWIAN
--- NOTE | 2024-10-27 12:57 | CM ---
CM reviewed chart, patient seen bedside with , for discharge today, home no needs. PETTIT form verbally reviewed, provided with copy, placed in chart. CM will continue to follow for all discharge planning needs.
Plan; home with , no needs.
--- NOTE | 2024-10-27 14:20 | W.PN.NEURO.1 ---
Today's Communication / Plan
-
d/c home
ASA 81, 21 days of plavix, Crestor 20
Trileptal 300 BID if needed
Neuro Assessment/Plan
Assessment
carotid u/s showing calcified plaque both carotid bulbs, prox ICA with <50% stenosis
MRI brain imgs rev'd, normal for age with mild atrophy and microvascular changes
By exam this would be an acute stroke based on residual symptoms and deficits, too small to show on MRI
agree ASA 81, I added 21 days of plavix and increased Crestor to 20
right V3 neuralgia, I started Trileptal 300 BID and performed trigeminal nerve block with resolution
Subjective/Objective
Subjective Data
Date of Service: October 27, 2024
clarifies that there was never any word finding difficulty; just right facial droop and dysarthria
Trileptal 2 doses TGN pain no change
trigeminal nerve block with resolution of pain
Objective Data
Vital Signs
Temp Pulse Resp BP Pulse Ox
36.9 C 58 18 165/89 96
10/27/24 12:00 10/27/24 12:00 10/27/24 12:00 10/27/24 12:00 10/27/24 12:00
Lab Results
10/26/24 06:22
10/26/24 06:22
PT 14.5 Sec (11.4-14.6) 10/25/24 18:22
INR 1.08 10/25/24 18:22
APTT 33.7 Sec (23.4-35.0) 10/25/24 18:22
Sodium 140 mmol/L (135-145) 10/26/24 06:22
Potassium 4.0 mmol/L (3.5-5.1) 10/26/24 06:22
BUN 17 mg/dl (9-20) 10/26/24 06:22
Glucose 98 mg/dl (70-99) 10/26/24 06:22
Calcium 9.2 mg/dl (8.4-10.2) 10/26/24 06:22
LDL Cholesterol, Calc 105 mg/dl 10/26/24 06:22
Patient Allergies
No Known Allergies Allergy (Verified 10/25/24 16:56)
Physical Exam
-
right nasolabial flattening
trace dysarthria
--- NOTE | 2024-10-27 14:27 | W.PN.UPDATE ---
Update Note
Progress Note Update
procedure note
51737 trigeminal nerve block
dx G50.0 right trigeminal neuralgia V3 branch
in a 10 cc syringe, 23g x1 in needle, drawn 5 cc bupivacaine 0.5% with 40 mg Kenalog-40
right trigeminal nerve, percutaneous through TMJ, into lateral pterygoid muscle, aspirate, no blood, injected.
afterwards patient reported relief
[2024-10-29 13:57] LABS: Lyme Antibody Screen, EIA Negative (Negative)
== END 2024-10-27 14:45 | disposition home or self-care (01) ==
LOC: 4 WEST ACU 20:08
PROVIDERS: ADMITTING PHYSICIAN Internal Medicine; ATTENDING PHYSICIAN General Practice; CONSULT PHYSICIAN Psychiatry & Neurology Clinical Neurophysiology; EMERGENCY PHYSICIAN Emergency Medicine; FAMILY PHYSICIAN Internal Medicine
DX: G45.9 Transient cerebral ischemic attack, unspecified (principal); R53.1 Weakness; I10 Essential (primary) hypertension; R29.810 Facial weakness; R47.01 Aphasia; E78.00 Pure hypercholesterolemia, unspecified; R05.3 Chronic cough; R47.1 Dysarthria and anarthria; M79.2 Neuralgia and neuritis, unspecified; I45.10 Unspecified right bundle-branch block; I70.0 Atherosclerosis of aorta; I34.0 Nonrheumatic mitral (valve) insufficiency; Z66 Do not resuscitate
CPT/HCPCS: 70450; 70544; 70551; 80048; 80053; 80061; 82962; 83036; 83735; 84484; 85025; 85027; 85610; 85652; 85730; 86618; 92523; 92610; 93005; 93306; 93880; 96374; 97161; 99285; G0378; Q9950

== ENCOUNTER → 2024-12-11 19:55 | Outpatient (REF) | payer MEDICARE, SELFPAY | LOC: MRI 3T 19:55 | PROVIDERS: ATTENDING PHYSICIAN Registered Nurse Critical Care Medicine; FAMILY PHYSICIAN Internal Medicine | DX: G50.0 Trigeminal neuralgia (principal); R29.90 Unspecified symptoms and signs involving the nervous system | CPT/HCPCS: 70553; A9575 ==